=== PATIENT | female | born 2000 | race Caucasian/White ===

== ENCOUNTER 2024-04-06 17:58 | Inpatient (IN) | payer BC ==
[~2024-04-06] VITALS: Ht 162.6 cm; Wt 83.9 kg
[2024-04-06 23:06] VITALS: BP 139/84
[2024-04-06 23:14] LABS: HEMATOCRIT 38.8 % (35.0-50.0); MCH 32.5 (27-36); MCHC 33.5 g/dl (30-36); MCV 96.8 fl (81-99); RBC 4.01 M/ul (4.3-5.7); RDW 14.2 (10.5-15.0)
[2024-04-06] MEDS ORDERED: LIDOCAINE 2% VISCOUS 6 ML SYR TOP ONE ×2 (23:15)
[2024-04-06] MEDS ORDERED: CALCIUM CARBONATE 500 MG CHEW PO PRN (23:15)
[2024-04-06] MEDS ORDERED: OXYTOCIN/0.9 % SODIUM CHLORIDE 30 UNITS/500 ML BAG IV SCH (23:15)
[2024-04-06] MEDS ORDERED: MAGNESIUM HYDROXIDE/AL HYDROX 30 ML CUP PO PRN (23:15)
[2024-04-06 23:41] LABS: ABO O; ANTIBODY SCREEN NEGATIVE; RH POSITIVE
--- NOTE | 2024-04-06 23:53 | PR ---
[facility] [address] [facility] [place], [place] [address] Signed Progress Notes IP Datetime Report Generated by CPN: 04/06/2024 23:53 PROGRESS NOTES: [id number] Impression: Normal Progression of Labor Procedures: Artificial ROM; Sterile Vag Exam Plan: Continue Present Management VITAL SIGNS: [id number] Vital Signs: Reviewed; Within Normal Limits EXAM: [id number] Dilatation: 9.0 Effacement: 100 Station: -2 Contractions: q 2 to 3 min MEMBRANES: [id number] Comments: Progressing well. Will continue. FETUS A: [id number] FHR Baseline: 125 Variability: Moderate 6-25bpm Accelerations: 15X15 Decelerations: None FHR Category: Category I Presentation: Vertex FETUS B: [id number] Signing Physician: Padmini Mckinley MD Copies: ~ *Electronically Signed* 04/06/24 1023 PADMINI MCKINLEY MD PATIENT NAME: MELBA SENIOR PROGRESS NOTE DATE OF : 89 PHYSICIAN: PADMINI MCKINLEY MD RPT #: [id number] REPORT IS CONFIDENTIAL AND NOT TO BE RELEASED WITHOUT AUTHORIZATION
[2024-04-07] MEDS ORDERED: OXYTOCIN/0.9 % SODIUM CHLORIDE 500 ML IV SCH (00:15)
[2024-04-07] MEDS ORDERED: HYDROCORTISONE ACETATE 25 MG SUPP PR PRN (00:15)
[2024-04-07] MEDS ORDERED: BENZOCAINE 60 ML AEROSOL TOP PRN (00:15)
[2024-04-07] MEDS ORDERED: WITCH HAZEL/GLYCERIN 1 EA PAD TOP PRN (00:15)
[2024-04-07] MEDS ORDERED: IBUPROFEN 600 MG TAB PO PRN (00:15)
[2024-04-07] MEDS ORDERED: CALCIUM CARBONATE 500 MG CHEW PO PRN (00:15)
[2024-04-07] MEDS ORDERED: MAGNESIUM HYDROXIDE 30 ML UDC PO PRN (00:15)
[2024-04-07] MEDS ORDERED: MAGNESIUM HYDROXIDE/AL HYDROX 30 ML CUP PO PRN (00:15)
[2024-04-07] MEDS ORDERED: ACETAMINOPHEN 325 MG TAB PO PRN (00:15)
[2024-04-07] MEDS ORDERED: HYDROCODONE/ACETA 5/325 TAB PO PRN (00:15)
[2024-04-07] MEDS ORDERED: LIDOCAINE 2% VISCOUS 6 ML SYR TOP ONE ×2 (00:15)
[2024-04-07] MEDS ORDERED: OXYCODONE/APAP 5/325 TAB PO PRN (00:15)
[2024-04-07] MEDS ORDERED: OXYCODONE HCL 5 MG TAB PO PRN (00:15)
[2024-04-07 00:51] LABS: ALBUMIN 2.7 g/dL (3.4-5.0); ALBUMIN/GLOBULIN RATIO 0.36 (1.1-2.4); ANION GAP 14.6 (7-21); BILIRUBIN, TOTAL 0.3 ng/dL (0.2-1.0); BUN/CREATININE RATIO 17.56 (6.0-28.6); CREATININE, SERUM 0.74 mg/dL (0.55-1.02); POTASSIUM 3.6 mmol/L (3.5-5.1)
[2024-04-07 02:00] LABS: PROTEIN, TOTAL 6.8 g/dL (6.4-8.2)
[2024-04-07 02:13] LABS: AMPHETAMINES, URINE NEGATIVE (NEGATIVE); BARBITURATES, URINE NEGATIVE (NEGATIVE); BENZODIAZEPINE, URINE NEGATIVE (NEGATIVE); BUPRENORPHINE, URINE NEGATIVE (NEGATIVE); CANNABINOID, URINE NEGATIVE (NEGATIVE); COCAINE, URINE NEGATIVE (NEGATIVE); ECSTASY, URINE NEGATIVE (NEGATIVE); FENTANYL, URINE NEGATIVE (NEGATIVE); METHADONE, URINE NEGATIVE (NEGATIVE); OPIATES, URINE NEGATIVE (NEGATIVE); OXYCODONE, URINE NEGATIVE (NEGATIVE); PHENCYCLIDINE, URINE NEGATIVE (NEGATIVE)
--- NOTE | 2024-04-07 08:24 | PR ---
[facility] [address] [facility] [place] [address] Signed PP Progress Notes Datetime Report Generated by PEPITO: 04/07/2024 08:24 SUBJECTIVE: [id number] Pain: Within Normal Limits Vital Signs: [id number] Vital Signs: Reviewed; Within Normal Limits Cardiovascular: Not Done Respiratory: Not Done Abdomen/Uterus: Abnormal Lochia: Normal Vulva/Perineum: Not Done Breasts: Not Done CVA Tenderness: Not Done Extremities: Normal Incision: Not Applicable Progress: Normal Exam Comments: Fundus firm, NT @ U-2 IMPRESSION/PLAN/PROCEDURES: [id number] Impression: Normal Progression Plan: Continue Present Management Progress Notes: Doing well. Her BPs are doing better overall. Will continue observation today w/ probable D/C in am if BPs remain stable. Signing Physician: Padmini Mckinley MD Copies: ~ *Electronically Signed* 04/07/24823 PADMINI MCKINLEY MD PATIENT NAME: MELBA SENIOR PROGRESS NOTE DATE OF : 99 PHYSICIAN: PADMINI MCKINLEY MD RPT #: [id number] REPORT IS CONFIDENTIAL AND NOT TO BE RELEASED WITHOUT AUTHORIZATION
[2024-04-07] MEDS ORDERED: SENNOSIDES/DOCUSATE 1 EA TAB PO SCH (09:00)
[2024-04-08 06:27] LABS: HEMATOCRIT 39.7 % (35.0-50.0); HEMOGLOBIN 13.1 g/dL (12.0-18.0); MCH 32.1 (27-36); MCHC 32.9 g/dl (30-36); MCV 97.6 fl (81-99); RBC 4.07 M/ul (4.3-5.7); RDW 14.6 (10.5-15.0)
--- NOTE | 2024-04-08 07:05 | PR ---
[facility] [address] [facility] [place], [place] [address] Signed PP Progress Notes Datetime Report Generated by CPN: 04/08/2024 07:05 SUBJECTIVE: [id number] Pain: Within Normal Limits Vital Signs: [id number] Vital Signs: Reviewed; Within Normal Limits Cardiovascular: Not Done Respiratory: Not Done Abdomen/Uterus: Abnormal Lochia: Normal Vulva/Perineum: Not Done Breasts: Not Done CVA Tenderness: Not Done Extremities: Normal Incision: Not Applicable Progress: Normal Exam Comments: Fundus firm, NT @ U-2. IMPRESSION/PLAN/PROCEDURES: [id number] Impression: Normal Progression Plan: Discharge Procedures: None Progress Notes: Doing well. Has declined varicella vaccination. She is ready for D/C. Signing Physician: Padmini Mckinley MD Copies: ~ *Electronically Signed* 04/08/24704 PADMINI MCKINLEY MD PATIENT NAME: MELBA SENIOR PROGRESS NOTE DATE OF : 99 PHYSICIAN: PADMINI MCKINLEY MD RPT #: [id number] REPORT IS CONFIDENTIAL AND NOT TO BE RELEASED WITHOUT AUTHORIZATION
== END 2024-04-08 09:23 | disposition home or self-care (01) | DRG 807 ==
LOC: FBCO 17:58 → FBC 22:37
PROVIDERS: ADMIT Obstetrics & Gynecology; ATTEND Obstetrics & Gynecology
PROC: 10E0XZZ Delivery of Products of Conception, External Approach (ICD-10-PCS; principal; 2024-04-06)
PROC: 3E0R3BZ Introduction of Anesthetic Agent into Spinal Canal, Percutaneous Approach (ICD-10-PCS; 2024-04-06)
PROC: 00HU33Z Insertion of Infusion Device into Spinal Canal, Percutaneous Approach (ICD-10-PCS; 2024-04-06)
PROC: 10907ZC Drainage of Amniotic Fluid, Therapeutic from Products of Conception, Via Natural or Artificial Opening (ICD-10-PCS; 2024-04-06)
DX: O14.94 Unspecified pre-eclampsia, complicating childbirth (principal); Z37.0 Single live birth; O69.81X0 Labor and delivery complicated by cord around neck, without compression, not applicable or unspecified; Z3A.39 39 weeks gestation of pregnancy; Z88.0 Allergy status to penicillin; Z91.018 Allergy to other foods; Z98.890 Other specified postprocedural states
CPT/HCPCS: 36415; 59025; 80053; 80307; 84550; 85027; 86850; 86900; 86901; A9270; G0463